=== PATIENT | male | born 1945 | race Caucasian/White ===

== ENCOUNTER 2019-06-01 07:30 | Inpatient (IN) | payer MEDICARE ==
[~2019-06-01 07:30] MED LIST: ACETAMINOPHEN 325 MG TABLET PO PRN; CEFAZOLIN SODIUM 2 GM in DEXTROSE 5%-WATER 100 ML IV PRN; CELECOXIB 200 MG CAPSULE PO PRN; GABAPENTIN 100 MG CAPSULE PO PRN; LACTATED RINGERS 1000 ML IV PRN; LIDOCAINE 0.5% INJ-PF (5 MG/ML) 50 ML SDV SUBCUT PRN; ONDANSETRON HCL INJ/PF 4 MG/2 ML SDV IV PRN; OXYCODONE HCL SR 10 MG TABLET PO PRN; SCOPOLAMINE HYDROBROMIDE 1.5 MG PATCH.TD72 TD PRN; TRAMADOL HCL 50 MG TABLET PO PRN; TRANEXAMIC ACID INJ/PF 1,000 MG/10 ML SDV IV PRN; VANCOMYCIN HCL 1,000 MG in DEXTROSE 5%-WATER 250 ML IV PRN
[2019-06-01] MEDS ORDERED: PROPOFOL INJ 200 MG/20 ML VIAL IV ONE ×2 (09:07→15:48)
[2019-06-01] MEDS ORDERED: MIDAZOLAM 2 MG/2 ML INJ ONE (09:07)
[2019-06-01] MEDS ORDERED: FENTANYL CITRATE INJ/PF 100 MCG/2 ML AMPUL ONE (09:07)
[2019-06-01] MEDS ORDERED: ONDANSETRON HCL INJ/PF 4 MG/2 ML SDV ONE ×2 (09:30→10:33)
[2019-06-01] MEDS ORDERED: DEXAMETHASONE SOD PHOSPHATE INJ 4 MG/1 ML VIAL ONE (09:30)
[2019-06-01] MEDS ORDERED: PROPOFOL 0 MG/0 ML INFUS..BTL IV ONE (09:30)
[2019-06-01] MEDS ORDERED: EPINEPHRINE INJ/PF 1 MG/1 ML AMPULE ONE (09:31)
[2019-06-01] MEDS ORDERED: OXYCODONE HCL IR 5 MG TABLET ONE (10:32)
[2019-06-01] MEDS ORDERED: CELECOXIB 200 MG CAPSULE ONE (10:32)
[2019-06-01] MEDS ORDERED: ACETAMINOPHEN 325 MG TABLET ONE (10:32)
[2019-06-01] MEDS ORDERED: GABAPENTIN 100 MG CAPSULE ONE (10:33)
[2019-06-01] MEDS ORDERED: SCOPOLAMINE HYDROBROMIDE 1.5 MG PATCH.TD72 ONE (10:33)
[2019-06-01] MEDS ORDERED: CEFAZOLIN INJ 1 GM VIAL ONE (10:34)
[2019-06-01] MEDS ORDERED: VANCOMYCIN HCL INJ 1000 MG VIAL ONE (12:05)
[2019-06-01] MEDS ORDERED: LIDOCAINE 1% INJ-PF (10 MG/ML) 30 ML SDV ONE (12:05)
[2019-06-01] MEDS ORDERED: KETOROLAC TROMETHAMINE INJ/PF 30 MG/1 ML SDV ONE (12:05)
[2019-06-01] MEDS ORDERED: BUPIVACAINE HCL 0.25 % INJ/PF (2.5 MG/1 ML) 30 ML VIAL ONE (12:05)
[2019-06-01] MEDS ORDERED: ONDANSETRON HCL INJ/PF 4 MG/2 ML SDV IV PRN (12:56)
[2019-06-01] MEDS ORDERED: FENTANYL CITRATE INJ/PF 100 MCG/2 ML AMPUL IV PRN ×3 (12:56)
[2019-06-01] MEDS ORDERED: DIPHENHYDRAMINE HCL 50 MG/ML VIAL IV PRN (12:56)
[2019-06-01] MEDS ORDERED: MORPHINE SULFATE 10 MG/ML INJ IV PRN (12:56)
[2019-06-01] MEDS ORDERED: TRANEXAMIC ACID INJ/PF 1,000 MG/10 ML SDV ONE (15:54)
[2019-06-01] MEDS ORDERED: MORPHINE SULFATE 10 MG/ML INJ ONE (16:31)
[2019-06-01] MEDS ORDERED: EPHEDRINE SULFATE INJ 50 MG/1 ML AMPULE ONE (17:17)
[2019-06-01] MEDS ORDERED: ACETAMINOPHEN 1,000 MG/100 ML RTUPB IV ONE ×2 (17:24→18:00)
--- NOTE | 2019-06-01 17:41 | Operative Report ---
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 They are transferred to the operating table where there prepped and draped in sterile sterile fashion. They are provided with 2 g of Ancef and 1 g of vancomycin preoperatively. After an appropriate timeout the prior incision was marked and an tensile incision was made through the prior incision. There was an area of suspicious healing from the old surgery that was ellipsed over the patella. Following this a medial parapatellar arthrotomy was performed and cultures were taken. Multiple specimens were taken upon entering the knee both for pathology as well as cultures. The synovial fluid in the knee was mostly healthy in appearance however there is a large amount of fibrinous material without any overt signs of infection. Upon gaining full exposure to the knee the tibial component was found be grossly loose and was easily removed. The femoral component was also loose required very little effort to remove. A thorough synovectomy was then performed to assist in exposure and remove any suspicious tissue. Again multiple samples were sent. The patellar button was evaluated and deemed appropriate for retention. The tibia was reamed up until initial chatter was encountered at 80 mm of depth. An intramedullary jig was placed on the reamer. The medial tibial plateau was grossly deficient of healthy bone stock and a step cut was made in order to obtain a healthy medial platform. This was done using an intramedullary jig, with a 15 mm step cut on the medial side and a 5 mm cut on the lateral side. Following this we then turned our attention to the femur where fresh cuts were made to achieve healthy bone. We then drilled the femur and reamed up into a 21 mm stem at 80 mm of depth. A trial femur was built with the 80 mm stem and after applying that in conjunction with a tensor, augments were added until excellent fit throughout the distal femur was achieved. This was done with the distance of a tensing device to allow appropriate femoral rotation and flexion. We then applied a tibial trial and found that a 12 mm poly-produced excellent medial lateral stability and full extension as well as appropriate full arc range of motion stability. After obtaining the ideal implants for stability and fit, the trials were placed on the back table as templates and the final implants were opened and built on the back table. During this time the knee was thoroughly debrided, all fibrous tissue on the bony surfaces was removed, the knee was copiously irrigated and a Aricept rinse was performed and allowed to sit for 2 minutes. After this the knee was again irrigated followed by dropping the tourniquet. Bleeders were identified and cauterized. The tourniquet was down for 10 minutes and then the tourniquet was reapplied. We then performed a back to sure soak for 2 minutes, followed by a repeat rinse. At this time the implants were built on the back table and the cement had been mixed. We then applied the implants and removed excess cement. These achieved excellent fit and the knee was then reduced and placed in extension to allow the cement to harden as we rinsed 1 last time. Gram of vancomycin powder was applied to the joint and 0 Vicryl sutures were placed in the capsule. This was followed with a running strata fix, followed by inverted 2-0 Monocryl in the subcutaneous tissue, followed by a interrupted running 3-0 nylon in the skin. A wound VAC was then applied to the right knee followed by a lightly compressive dressing. The patient was then awakened from anesthesia and transferred to PACU in stable condition.
[2019-06-01] MEDS ORDERED: OXYCODONE HCL IR 5 MG TABLET PO PRN ×2 (17:51→17:52)
[2019-06-01] MEDS ORDERED: TRAMADOL HCL 50 MG TABLET PO PRN (17:52)
[2019-06-01] MEDS ORDERED: ZOLPIDEM TARTRATE 5 MG TABLET PO PRN (17:56)
[2019-06-01] MEDS ORDERED: DIPHENHYDRAMINE HCL 25 MG CAPSULE PO PRN (17:56)
[2019-06-01] MEDS ORDERED: DOCUSATE SODIUM 100 MG CAPSULE PO PRN (17:57)
[2019-06-01] MEDS ORDERED: NORMAL SALINE 1000 ML 1,000 ML IV PRN (17:58)
[2019-06-01] MEDS ORDERED: ONDANSETRON 4 MG TAB.RAPDIS PO PRN (17:59)
--- NOTE | 2019-06-01 18:48 | RADIOLOGY REPORT (SQ) ---
EXAM DESCRIPTION: KNEE RIGHT 2 VIEWS COMPLETED DATE/TIME: 06/01/2019 4:43 pm REASON FOR STUDY: POST-OP CHECK M17.11 UNILATERAL PRIMARY OSTEOARTHRITIS, RIGHT KNEE COMPARISON: None. NUMBER OF VIEWS: Two views. TECHNIQUE: AP and lateral radiographic images acquired of the right knee. LIMITATIONS: None. FINDINGS: Postoperative images show a left knee arthroplasty in good position. IMPRESSION: Left knee arthroplasty. Refer to operative note for further information. TECHNICAL DOCUMENTATION: JOB ID: [id number] 2010 [employer]- All Rights Reserved Reading location - IP/workstation name: [email or web address]
[2019-06-01] MEDS ORDERED: PANTOPRAZOLE SODIUM 20 MG TABLET.DR PO ONE (19:30)
[2019-06-01] MEDS: MORPHINE SULFATE 10 MG/ML INJ IV PRN (19:54)
[2019-06-01] MEDS: KETOROLAC TROMETHAMINE INJ/PF 30 MG/1 ML SDV IV SCH (21:36)
[2019-06-01] MEDS: GABAPENTIN 100 MG CAPSULE PO SCH (21:37)
[2019-06-01] MEDS: CEFAZOLIN SODIUM 2 GM in DEXTROSE 5%-WATER 100 ML IV SCH (21:38)
[2019-06-01] MEDS: ACETAMINOPHEN 325 MG TABLET PO SCH (21:38)
[2019-06-02] MEDS: KETOROLAC TROMETHAMINE INJ/PF 30 MG/1 ML SDV IV SCH (05:26)
[2019-06-02] MEDS: CEFAZOLIN SODIUM 2 GM in DEXTROSE 5%-WATER 100 ML IV SCH (05:26)
[2019-06-02] MEDS: ACETAMINOPHEN 325 MG TABLET PO SCH (05:26)
--- NOTE | 2019-06-02 07:43 | PDOC PROGRESS REPORT ---
Subjective Progress Note for:: 06/02/19 Subjective:: The patient is doing well this AM. Pain is present but not out of proportion and well controlled on their current medications. There are no new symptoms or overnight events. Overall they are felling well without complaints. They deny chest pain, shortness of breath or motor or sensory loss. Reason For Visit: M17.11 UNILATERAL PRIMARY OSTEOAR Physical Exam Vital Signs: Temp Pulse Resp BP Pulse Ox 98.2 F 63 18 93/64 L 95 06/02/19 03:54 06/02/19 03:54 06/02/19 03:54 06/02/19 03:54 06/02/19 03:54 Intake & Output 06/01/19 06/02/19 06/03/19 06:59 06:59 06:59 Intake Total 3000 Output Total 350 Balance 2650 Weight 103.1 kg Physical Exam: Right lower extremity -Pulses 2+ distally -Compartments soft -Wound clean dry and intact minimal drainage, appropriate appearance for postop day 1 -Sensation grossly intact to L3-4-5 S1 -Motor grossly intact to EHL TA gastroc and quad - Able to perform quad extension and elevate heel off of bed. Results Laboratory Results: 06/01/19 13:12 Knee - Right Gram Stain - Final 06/01/19 13:17 Knee - Right Gram Stain - Final 06/01/19 13:00 Knee - Right Gram Stain - Final Impressions: Knee X-Ray 06/01/19 00:00 IMPRESSION: Left knee arthroplasty. Refer to operative note for further information. Assessment & Plan - Diagnosis (1) History of revision of total replacement of right knee joint Is this a current diagnosis for this admission?: Yes Plan: - 2 doses of Ancef postoperatively q 8 hours to complete 24 hours perioperatively -Weightbearing as tolerated, no precautions, encourage out of bed JLUIS for ADL training - PT/OT - Keep knee extended in bed, rolled towel under the ankle to obtain full extension -aspirin 325 daily for DVT prophylaxis for 6 weeks -multimodal pain management to avoid excessive narcotics, including gabapentin, tramadol, Toradol, acetaminophen. -Dressing should not be removed till seen in the office. He has been given instructions to refill batteries as needed, as well as purchase waterproof dressings to reinforce the periphery if needed. These were described at length during the visit this morning. -May shower with the dressing intact, if it starts to come off she should not get the incision wet. -I would like to follow the patient my office within the next 7 to [address] at [address] [place] [address]. in [place] office #: [phone] - Time Time Spent with patient: Less than 15 minutes
[2019-06-02 08:10] VITALS: BP 94/61
[2019-06-02] MEDS: MORPHINE SULFATE 10 MG/ML INJ IV PRN (08:23)
[2019-06-02] MEDS ORDERED: CETIRIZINE 10 MG TABLET PO SCH (10:00)
[2019-06-02] MEDS ORDERED: CHOLECALCIFEROL (D3) 1,000 UNIT (25 MCG) TABLET PO SCH (10:00)
[2019-06-02] MEDS ORDERED: ASPIRIN 325 MG TABLET PO SCH (10:00)
[2019-06-02] MEDS ORDERED: CELECOXIB 200 MG CAPSULE PO SCH (10:00)
[2019-06-02] MEDS ORDERED: ASCORBIC ACID 500 MG TABLET PO SCH (10:00)
[2019-06-02] MEDS ORDERED: PANTOPRAZOLE SODIUM 20 MG TABLET.DR PO SCH (10:00)
[2019-06-02] MEDS ORDERED: POLYETHYLENE GLYCOL 3350 POWDER 17 GM/1 PACKET PO SCH (10:00)
[2019-06-02] MEDS: GABAPENTIN 100 MG CAPSULE PO SCH (10:04)
--- NOTE | 2019-06-07 15:03 | PDOC DISCHARGE SUMMARY ---
Impression - Admit/DC Date/PCP Admission Date/Primary Care Provider: 06/01/19 09:51 Discharge Date: 06/02/19 - Discharge Diagnosis (1) History of revision of total replacement of right knee joint Is this a current diagnosis for this admission?: Yes - Additional Information Resuscitation Status: Full Code Discharge Diet: As Tolerated Discharge Activity: Activity As Tolerated, No Driving, Keep Legs Elevated, No Lifting/Push/Pulling, Slowly Increase Activity, No tub bath, Walk Frequently Referrals: DINA ARIAS JR, DO [ACTIVE PROVISIONAL STAFF] - 06/12/19 12:45 pm Home Medications: Ascorbic Acid [Vitamin C] 1,000 mg PO DAILY 05/29/19 Cetirizine HCl [Zyrtec 10 mg Tablet] 10 mg PO DAILY 05/29/19 Cholecalciferol (Vitamin D3) [Vitamin D3 1000 Unit Tablet] 1,000 unit PO DAILY 05/29/19 Tramadol HCl [Ultram] 50 mg PO Q4HP PRN 05/29/19 Bifidobacterium Infantis [Align] 10.5 mg PO DAILY 06/01/19 Diclofenac Sodium [Voltaren 50 mg Tablet.dr] 50 mg PO DAILY 06/01/19 Fluticasone Propionate [Flonase Nasal [place] 50 Mcg/[place] 16 gm] 2 spray NASL DAILY 06/01/19 Multivitamin [Tab-A-Roselyn (Multiple Vitamin) Tablet] 1 tab PO DAILY 06/01/19 Omeprazole 40 mg PO DAILY 06/01/19 Polyethylene Glycol 3350 [Miralax Powder 17 gm/Packet] 1 packet PO DAILY 06/01/19 Pseudoephedrine HCl [Sudafed 30 mg Tablet] 30 mg PO Q6HP PRN 06/01/19 Tamsulosin HCl [Flomax 0.4 mg Cap.sr] 0.4 mg PO DAILY 06/01/19 Acetaminophen [Tylenol 325 mg Tablet] 975 mg PO Q8 tablet 06/02/19 Aspirin [Aspirin 325 mg Tablet] 325 mg PO DAILY tablet 06/02/19 Celecoxib [Celebrex 200 mg Capsule] 200 mg PO DAILY capsule 06/02/19 Gabapentin [Neurontin 100 mg Capsule] 100 mg PO Q12 capsule 06/02/19 Oxycodone HCl [Oxy-Ir 5 mg Tablet] 5 mg PO Q4HP PRN tablet 06/02/19 Oxycodone HCl [Oxy-Ir 5 mg Tablet] 10 mg PO Q4HP PRN tablet 06/02/19 Tramadol HCl [Ultram 50 mg Tablet] 50 mg PO Q4HP PRN tablet 06/02/19 History of Present Illiness History of Present Illness: LUIS ANTONIO CAMARILLO is a 73 year old male who was seen in my office for continued rig ht knee pain after right total knee arthroplasty. Thorough work-up was performed including an infectious work-up which was all negative. Discussion was had with the patient regarding proceeding with a single stage exchange while including the potential for utilizing anti-infection measures during the surgery in order to protect against the potential of occult periprosthetic joint infection. The patient did have a remote history of a superficial wound infection following his right total knee arthroplasty that ultimately healed without need for subsequent intra-articular surgery. After discussing risks and benefits the patient was interested in proceeding with right total knee arthroplasty revision and provided informed operative consent. Hospital Course Hospital Course: They were brought to the operating room on 06/01/19 and underwent a right total knee arthroplasty revision and tolerated procedure very well with out complication. They were then admitted to the hospital floor for postoperative medical management, monitoring, and pain control. On postoperative day #1 they were ambulating well with physical therapy, to the degree that they approved them for discharge home. They were discharged home on 06/02/2019. They had no acute events or complications over the course of their stay. All detailed instructions and prescriptions were provided to the patient prior to admission on the year prior office visit. Of note, initial Gram stain was read as potentially positive for gram positive cocci however upon repeat inspection by pathology they concluded that this was not gram-positive cocci but rather all specimens were aseptic in appearance. The patient was discharged home on 1 week of prophylactic antibiotics. Physical Exam Vital Signs: Temp Pulse Resp BP Pulse Ox 97.7 F 64 19 94/61 L 100 06/02/19 11:31 06/02/19 11:31 06/02/19 11:31 06/02/19 11:31 06/02/19 11:31 Results Impressions: Knee X-Ray 06/01/19 00:00 IMPRESSION: Left knee arthroplasty. Refer to operative note for further information. Stroke Is this a Stroke Patient?: No Acute Heart Failure - Is this a Heart Failure Patient?: No
== END 2019-06-02 12:16 | disposition home or self-care (01) | DRG 468 ==
LOC: INOR 09:51 → 5 18:08
PROVIDERS: ADMIT Orthopaedic Surgery; ATTEND Orthopaedic Surgery
PROC: 0SRC069 Replacement of Right Knee Joint with Oxidized Zirconium on Polyethylene Synthetic Substitute, Cemented, Open Approach (ICD-10-PCS; 2019-06-01)
PROC: 0SPC0JZ Removal of Synthetic Substitute from Right Knee Joint, Open Approach (ICD-10-PCS; principal; 2019-06-01 12:15)
DX: T84.032A Mechanical loosening of internal right knee prosthetic joint, initial encounter (principal); M17.11 Unilateral primary osteoarthritis, right knee; Z95.0 Presence of cardiac pacemaker
CPT/HCPCS: 01402; 87070; 87075; 87205; 88304; J0131; J0171; J0690; J1100; J1885; J2250; J2270; J2405; J2704; J3010; J3370; J3490; J7060